=== PATIENT | female | born 1950 | race Caucasian/White ===

== ENCOUNTER 2020-11-21 08:10 | Day surgery (SDC) | payer MEDICARE ==
[~2020-11-21] VITALS: Ht 165.1 cm; Wt 75.3 kg
[~2020-11-21 08:10] MED LIST: AMLO2.5T5 PO; CALC400T40 PO; CEFD300C PO; CITA10TA4 PO; DRON10CA5 PO; ENOX40DI SQ; FERR-36 PO; GUAI400T78 PO; HYDR-2759 PO; HYDROmorphone 2 MG/ML VIAL IVP PRN; INSU100I13 SQ; INSU100I16 SQ; INSU100I17 SQ; IV RINGERS,LACTATED 1000ML 1,000 ML IV SCH; LACT1POW11 PO; LINA5TAB2 PO; LISI-517 PO; LORA0.5T96 PO; LOVA20TA2 PO; METO5TAB55 PO; MORPHINE SULFATE 2 MG/ML VIAL. IVP PRN; ONDA4TAB7 PO; POLY17PO29 PO; PROCHLORPERAZINE 10 MG/2 ML VIAL. IVP PRN; VALS40TA2 PO; fentaNYL PF VIAL 100 MCG/2 ML VIAL IVP PRN
[2020-11-21] MEDS ORDERED: LIDOCAINE 2% PF 5 ML VIAL. ONE (08:55)
[2020-11-21] MEDS ORDERED: PROPOFOL 10 MG/ML (20ML) VIAL. IV ONE (08:55)
[2020-11-21] MEDS: INSULIN LISPRO 100 UNIT/ML 3ML VIAL for OP,RR ONLY. SQ PRN ×2 (10:02→11:22)
[2020-11-21] MEDS ORDERED: DEXAMETHASONE SOD PHOS 4 MG/ML VIAL ONE (11:00)
[2020-11-21] MEDS ORDERED: ONDANSETRON PF 4 MG/2 ML VIAL. ONE (11:00)
[2020-11-21] MEDS ORDERED: SEVOFLURANE 31 TO 60 MINUTES. IH ONE (11:00)
[2020-11-21] MEDS ORDERED: INSULIN LISPRO 100 UNIT/ML 3ML VIAL for OP,RR ONLY. SQ ONE ×2 (11:30)
--- NOTE | 2020-11-21 11:33 | DISCH ---
DISCHARGE INSTRUCTIONS Condition on Discharge Condition on Discharge: Stable Activity After Discharge Activity Instructions for Disc: Activity as tolerated (With assistance for ambulation and transfers) Exercise Instruction after Dis: Progress as tolerated Driving Instructions after Dis: Do not drive Weight Bearing Status after Di: As tolerated (Weightbearing as tolerated but needs assistance with ambulation and transfers) Diet after Discharge Diet after Discharge: Diabetic No Calorie Level Diet Texture: Regular Liquid Texture: Thin Liquid Swallowing Supervision: None needed Wound Incision Care Wound/Incision Care: Ice to area for comfort, Change dressing (May remove dressing in 3 days, reinforce if necessary before that time, no bathing until pin sites scab or sufficiently healed over) Checks after Discharge Checks after discharge: Check blood press - daily, Check blood sugar, ac/hs Contacting the DR. after DC Call your doctor for: Concerns you may have Follow-Up Follow up with: [facility] 7 to 10 days Treatment/Equipment after DC Adaptive Equipment Issued: None ANTWAN ROCK MD Nov 21, 2020 11:32
[2020-11-21 11:40] VITALS: BP 151/52
--- NOTE | 2020-11-21 14:25 | PDOC4 ---
Operative Note Operative Note Date of surgery: 11/21/2020 Preoperative diagnosis: Retained hardware from external fixation of right proximal tibia fracture, now healed Postoperative diagnosis: Same Operative procedure: Removal external fixator right proximal tibia Surgeon: Howard [employer] Editor: Raymundo patel Anesthesia: General Estimated blood loss: 20 cc Complications: None Operative indications: Patient had an external fixator placed because of high risk of internal fixation complications expected with her medical situation and has been nonweightbearing but allow to move her knee. Subsequent x-rays show excellent healing of her proximal tibia fracture which now appears healed and I had gone over with her risk benefits postoperative course of the removal of the fixator and ability to advance her activities in the interim. She agrees to proceed with surgical evaluation and treatment for removal of the external fixator Operative text: Patient was identified procedure verified patient placed in supine position on the operating table. After adequate amounts of general anesthesia were administered the fixator components were first removed and the pins were retained and prepped using standard sterile technique. Pins were then removed without complication and thorough irrigation carried out at the pin sites. There was really minimal redness throughout and surrounding tissue was otherwise intact. Sterile soft dressings were then placed patient was returned to recovery room in stable condition having tolerated procedure well. Raymundo patel was present for the procedure assisted in the patient positioning prepping draping removal process and dressings ANTWAN ROCK MD Nov 21, 2020 14:25
== END 2020-11-21 12:23 ==
LOC: SURG 08:10
PROVIDERS: ATTEND Orthopaedic Surgery
DX: S82.831D Other fracture of upper and lower end of right fibula, subsequent encounter for closed fracture with routine healing (principal); S82.101D Unspecified fracture of upper end of right tibia, subsequent encounter for closed fracture with routine healing; E78.00 Pure hypercholesterolemia, unspecified; I10 Essential (primary) hypertension; M19.90 Unspecified osteoarthritis, unspecified site; M81.0 Age-related osteoporosis without current pathological fracture; E11.9 Type 2 diabetes mellitus without complications; F41.9 Anxiety disorder, unspecified; F32.9 Major depressive disorder, single episode, unspecified; Z79.4 Long term (current) use of insulin; Z79.899 Other long term (current) drug therapy; Z98.890 Other specified postprocedural states; Z88.8 Allergy status to other drugs, medicaments and biological substances; Z20.822 Contact with and (suspected) exposure to COVID-19; X58.XXXD Exposure to other specified factors, subsequent encounter
CPT/HCPCS: 20694; 82962; 87426; A4314; A4461; C9803; J0690; J1100; J1815; J2405; J2704; U0003; A4223